=== PATIENT | male | born 2000 | race Caucasian/White ===

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

== ENCOUNTER → 2018-08-08 | Outpatient (CLI) | payer OTHER ==
[~2018-08-08] MED LIST: ALPR0.25 PO
--- NOTE | 2018-08-08 16:33 | Diagnostic Imaging Report ---
PROCEDURE: CT sinuses without contrast TECHNIQUE: Multiple contiguous axial images were obtained through the sinuses without the use of intravenous contrast. Coronal and sagittal reformations were then performed. INDICATION: Persistent nasal congestion. COMPARISON: There are no prior studies available for comparison. FINDINGS: The sinuses are generally clear and well aerated. There is no mucosal thickening or fluid layering to suggest active sinusitis. The ostiomeatal complexes are patent. The nasal septum is not significantly deviated. The bone window show no evidence for a fracture or for a destructive lesion. The orbits and the visualized intracranial contents are unremarkable. IMPRESSION: There is no evidence for active sinus disease. Dictated by: Dictated on workstation # [id number]
== END ==
LOC: RAD 12:33
PROVIDERS: ATTEND Internal Medicine
DX: J30.9 Allergic rhinitis, unspecified (principal); R09.81 Nasal congestion
CPT/HCPCS: 70486